=== PATIENT | male | born 1930 | race Caucasian/White ===

== ENCOUNTER 2019-06-11 11:40 | Emergency (ER) | payer MEDICARE ==
[2019-06-11 11:46] VITALS: BP 158/70; PULSE 83; RESP 16; TEMP 98.1
--- NOTE | 2019-06-11 12:17 | XR ---
EXAMINATION TYPE: XR ankle complete RT , 3 VIEWS DATE OF EXAM ORDERED: 06/11/2019 HISTORY: Pain. COMPARISON: None. FINDINGS: There is vascular calcification present. There is a well corticated ossific density adjace nt to the medial malleolus which may relate to previous trauma. No definite acute fracture is seen. N o ankle joint effusion is seen. IMPRESSION: OSSIFIC DENSITY ADJACENT TO THE MEDIAL MALLEOLUS LIKELY RELATES TO TRAUMA. PLEASE CORRELATE CLINICAL LY.
--- NOTE | 2019-06-11 12:18 | XR ---
EXAMINATION TYPE: XR foot complete RT , 3 VIEWS DATE OF EXAM ORDERED: 06/11/2019 HISTORY: Pain. COMPARISON: None. FINDINGS: There are degenerative changes in the right first MTP joint. No fracture, dislocation or o ther acute osseous lesion is seen. There are vascular calcifications present. IMPRESSION: NO ACUTE OSSEOUS LESION.
--- NOTE | 2019-06-11 12:28 | ED ---
Fall HPI - General Chief Complaint: Fall Stated Complaint: fall, rt leg injury Time Seen by Provider: 06/11/19 11:48 Source: patient, RN notes reviewed Mode of arrival: wheelchair Limitations: no limitations - History of Present Illness Initial Comments: 88-year-old male presents emergency Department with chief complaint of right foot and ankle pain. Patient states that he was getting out of the shower yesterday states that he slipped on the mat. Patient states that his leg is swollen primarily his right foot and ankle and is painful when he ambulates. Patient denies any head injury no loss conscious. Denies any other complaints. No prior right foot ankle fracture. - Related Data Allergies Allergy/AdvReac Type Severity Reaction Status Date / Time No Known Allergies Allergy Verified 06/11/19 11:46 Review of Systems ROS Statement: Those systems with pertinent positive or pertinent negative responses have been documented in the HPI. ROS Other: All systems not noted in ROS Statement are negative. Past Medical History Past Medical History: Hypertension Additional Past Medical History / Comment(s): HEART REGURGITATION History of Any Multi-Drug Resistant Organisms: None Reported Past Surgical History: No Surgical Hx Reported Past Psychological History: No Psychological Hx Reported Smoking Status: Never smoker Past Alcohol Use History: Occasional Past Drug Use History: None Reported General Exam Limitations: no limitations General appearance: alert, in no apparent distress Head exam: Present: atraumatic, normocephalic, normal inspection Eye exam: Present: normal appearance, PERRL, EOMI. Absent: scleral icterus, conjunctival injection, periorbital swelling Neck exam: Present: normal inspection, full ROM. Absent: tenderness, meningismus, lymphadenopathy Respiratory exam: Present: normal lung sounds bilaterally. Absent: respiratory distress, wheezes, rales, rhonchi, stridor Cardiovascular Exam: Present: regular rate, normal rhythm, normal heart sounds. Absent: systolic murmur, diastolic murmur, rubs, gallop, clicks GI/Abdominal exam: Present: soft, normal bowel sounds. Absent: distended, tenderness, guarding, rebound, rigid Extremities exam: Present: other (There is moderate swelling to the right foot and ankle there is tenderness the medial malleoli region, neurovascular intact there is no proximal tib-fib tenderness no a tenderness she does have full range of motion) Back exam: Present: full ROM. Absent: tenderness Course Vital Signs 06/11/19 11:43 Temperature 98.1 F Pulse Rate 83 Respiratory 16 Rate Blood Pressure 158/70 O2 Sat by Pulse 98 Oximetry - Reevaluation(s) Reevaluation #1: 06/11/19 12:45 Patient was offered pain medicine declined on initial evaluation. Procedures - Orthopedic Splinting/Casting Injury #1 Side: right Lower Extremity Injury Location: short leg, ankle Lower Extremity Immobilizer: posterior splint, synthetic pre-padded splint Other Orthopedic Equipment: walker Medical Decision Making - Medical Decision Making 88-year-old male presents emergency Department chief complaint of right ankle foot pain. X-rays reviewed shows evidence of fracture of the malleoli region. He was splinted and will follow-up with orthopedics. Disposition Clinical Impression: Fall, Closed left ankle fracture Disposition: HOME SELF-CARE Condition: Stable Instructions (If sedation given, give patient instructions): Ankle Fracture (ED) Additional Instructions: Please return to the Emergency Department if symptoms worsen or any other con cerns. Is patient prescribed a controlled substance at d/c from ED?: No Referrals: None,Stated [Primary Care Provider] - 1-2 days Waldemar Reyes MD [Medical Doctor] - 1-2 days
== END 2019-06-11 13:13 | disposition home or self-care (01) ==
LOC: EC 11:40
DX: S82.891A Other fracture of right lower leg, initial encounter for closed fracture (principal); W01.0XXA Fall on same level from slipping, tripping and stumbling without subsequent striking against object, initial encounter; Y93.89 Activity, other specified; Y92.002 Bathroom of unspecified non-institutional (private) residence as the place of occurrence of the external cause
CPT/HCPCS: 29515; 99283

== ENCOUNTER → 2019-06-14 | Outpatient (CLI) | payer MEDICARE ==
--- NOTE | 2019-06-14 16:52 | US ---
EXAMINATION TYPE: US venous doppler duplex LE - RIGHT DATE OF EXAM: 06/14/2019 4:35 PM COMPARISON: NONE CLINICAL HISTORY: R60.9 EDEMA,M25.571 PAIN IN RT ANKLE,I80.9 PHLEBITIS. On aspirin. Patient states b reaking ankle and now swelling. SIDE PERFORMED: Right TECHNIQUE: The lower extremity deep venous system is examined utilizing real time linear array sonog geremias with graded compression, doppler sonography and color-flow sonography. VESSELS IMAGED: External Iliac Vein (EIV) Common Femoral Vein Deep Femoral Vein Greater Saphenous Vein * Femoral Vein Popliteal Vein Small Saphenous Vein * Proximal Calf Veins (* superficial vessels) FINDINGS: Grayscale, color doppler, spectral doppler imaging performed of the deep veins of the lower extremities. There is normal flow, compressibility, vascular waveforms. IMPRESSION: Negative for DVT, right lower extremity.
== END | disposition home or self-care (01) ==
LOC: RADUSWWP 15:46
PROVIDERS: ATTEND Orthopaedic Surgery
DX: M25.571 Pain in right ankle and joints of right foot (principal); M79.661 Pain in right lower leg; I80.9 Phlebitis and thrombophlebitis of unspecified site; R60.9 Edema, unspecified